=== PATIENT | female | born 1990 | race Caucasian/White ===

== ENCOUNTER 2020-06-15 15:26 | Outpatient (REF) | payer MEDICAID, SELFPAY | END 2020-06-15 15:27 | disposition home or self-care (01) | LOC: HO.HAP 15:26 | PROVIDERS: Visit Provider Pediatrics | DX: Z46.1 Encounter for fitting and adjustment of hearing aid (principal) | CPT/HCPCS: 92593; V5266 ==

== ENCOUNTER 2020-11-20 14:47 | Outpatient (REF) | payer MEDICAID, SELFPAY | END 2020-11-20 14:48 | disposition home or self-care (01) | LOC: HO.HAP 14:47 | PROVIDERS: Visit Provider Pediatrics | DX: Z46.1 Encounter for fitting and adjustment of hearing aid (principal) | CPT/HCPCS: V5266 ==

== ENCOUNTER 2021-03-16 16:52 | Outpatient (REF) | payer MEDICAID, SELFPAY | END 2021-03-16 16:53 | disposition home or self-care (01) | LOC: HO.HAP 16:52 | PROVIDERS: Visit Provider Pediatrics | DX: Z13.89 Encounter for screening for other disorder (principal) ==

== ENCOUNTER 2021-03-29 15:22 | Outpatient (REF) | payer MEDICAID, SELFPAY | END 2021-03-29 15:23 | disposition home or self-care (01) | LOC: HO.HAP 15:22 | PROVIDERS: Visit Provider Pediatrics | DX: Z13.89 Encounter for screening for other disorder (principal) ==

== ENCOUNTER 2021-05-01 12:14 | Outpatient (REF) | payer MEDICAID, SELFPAY | END 2021-05-01 12:15 | disposition home or self-care (01) | LOC: HO.HAP 12:14 | PROVIDERS: Visit Provider Pediatrics | DX: Z46.1 Encounter for fitting and adjustment of hearing aid (principal); H90.3 Sensorineural hearing loss, bilateral | CPT/HCPCS: V5266 ==

== ENCOUNTER 2021-11-12 14:35 | Outpatient (REF) | payer MEDICAID, SELFPAY | END 2021-11-12 14:36 | disposition home or self-care (01) | LOC: HO.HAP 14:35 | PROVIDERS: Visit Provider Pediatrics | DX: Z46.1 Encounter for fitting and adjustment of hearing aid (principal); H90.3 Sensorineural hearing loss, bilateral | CPT/HCPCS: V5266 ==

== ENCOUNTER 2022-02-14 14:26 | Outpatient (REF) | payer MEDICAID, SELFPAY | END 2022-02-14 14:27 | disposition home or self-care (01) | LOC: HO.HAP 14:26 | PROVIDERS: Visit Provider Pediatrics | DX: Z46.1 Encounter for fitting and adjustment of hearing aid (principal); H90.6 Mixed conductive and sensorineural hearing loss, bilateral | CPT/HCPCS: 92592 ==

== ENCOUNTER 2022-05-15 11:34 | Outpatient (REF) | payer MEDICAID, SELFPAY | END 2022-05-15 11:35 | disposition home or self-care (01) | LOC: HO.HAP 11:34 | PROVIDERS: Visit Provider Pediatrics | DX: Z46.1 Encounter for fitting and adjustment of hearing aid (principal); H90.6 Mixed conductive and sensorineural hearing loss, bilateral | CPT/HCPCS: V5266 ==

== ENCOUNTER 2022-10-11 12:11 | Outpatient (REF) | payer MEDICARE, MEDICAID, SELFPAY | END 2022-10-11 12:12 | disposition home or self-care (01) | LOC: HO.HAP 12:11 | PROVIDERS: Visit Provider Pediatrics | DX: Z46.1 Encounter for fitting and adjustment of hearing aid (principal); H90.6 Mixed conductive and sensorineural hearing loss, bilateral | CPT/HCPCS: V5266 ==

== ENCOUNTER 2023-03-20 09:52 | Outpatient (REF) | payer MEDICARE, MEDICAID, SELFPAY | END 2023-03-20 09:53 | disposition home or self-care (01) | LOC: HO.HAP 09:52 | PROVIDERS: Visit Provider Internal Medicine | DX: Z46.1 Encounter for fitting and adjustment of hearing aid (principal); H90.3 Sensorineural hearing loss, bilateral | CPT/HCPCS: V5266 ==

== ENCOUNTER 2023-04-24 10:26 | Outpatient (REF) | payer MEDICARE, MEDICAID, SELFPAY | END 2023-04-24 10:27 | disposition home or self-care (01) | LOC: HO.HAP 10:26 | PROVIDERS: Visit Provider Pediatrics | DX: Z46.1 Encounter for fitting and adjustment of hearing aid (principal); H90.3 Sensorineural hearing loss, bilateral | CPT/HCPCS: 92592 ==

== ENCOUNTER 2023-04-25 11:01 | Outpatient (REF) | payer MEDICARE, MEDICAID, SELFPAY | END 2023-04-25 11:02 | disposition home or self-care (01) | LOC: HO.HAP 11:01 | PROVIDERS: Visit Provider Internal Medicine | DX: Z46.1 Encounter for fitting and adjustment of hearing aid (principal); H90.6 Mixed conductive and sensorineural hearing loss, bilateral | CPT/HCPCS: 92592 ==

== ENCOUNTER 2023-08-11 10:55 | Outpatient (REF) | payer MEDICARE, MEDICAID, SELFPAY | END 2023-08-11 10:56 | disposition home or self-care (01) | LOC: HO.HAP 10:55 | PROVIDERS: Visit Provider Internal Medicine | DX: Z46.1 Encounter for fitting and adjustment of hearing aid (principal); H90.3 Sensorineural hearing loss, bilateral | CPT/HCPCS: V5266 ==

== ENCOUNTER 2023-08-26 10:29 | Outpatient (REF) | payer MEDICARE, MEDICAID, SELFPAY | END 2023-08-26 10:30 | disposition home or self-care (01) | LOC: HO.HAP 10:29 | PROVIDERS: Visit Provider Internal Medicine | DX: Z46.1 Encounter for fitting and adjustment of hearing aid (principal); H90.3 Sensorineural hearing loss, bilateral | CPT/HCPCS: 92592; 99499 ==

== ENCOUNTER 2023-08-27 10:34 | Outpatient (REF) | payer MEDICARE, MEDICAID, SELFPAY | END 2023-08-27 10:35 | disposition home or self-care (01) | LOC: HO.HAP 10:34 | PROVIDERS: Visit Provider Internal Medicine | DX: Z13.89 Encounter for screening for other disorder (principal) ==

== ENCOUNTER 2024-02-11 13:38 | Outpatient (REF) | payer MEDICARE, MEDICAID, SELFPAY | END 2024-02-11 13:39 | disposition home or self-care (01) | LOC: HO.HAP 13:38 | PROVIDERS: Visit Provider Pediatrics | DX: Z46.1 Encounter for fitting and adjustment of hearing aid (principal) | CPT/HCPCS: V5266 ==

== ENCOUNTER 2024-02-24 11:51 | Outpatient (REF) | payer MEDICARE, MEDICAID, SELFPAY ==
--- NOTE | 2024-02-24 15:04 | MHC.AU.HA3 ---
Hearing Instrument Follow-Up- Binaural Date of Visit: 02/24/24 Right Ear: Jesus Alberto, Model, Color, Serial Number: Rajat Prado-Mati WARE [id number] Booth Supervisor Repair Warranty: 06/21/2022 Booth Supervisor Loss and Damage Warranty: 06/21/2022 Battery Size: 312 Earmold/Dome/CShell/SlimTip:canal lock mold Dispensed By: [facility] Date of Fittin04/09/2019 Left Ear: Jesus Alberto, Model, Color, Serial Number: Rajat Nguyen0-[id number] [id number] Booth Supervisor Repair Warranty: 06/21/2022 Booth Supervisor Loss and Damage Warranty: 06/21/2022 Battery Size: 312 Earmold/Dome/CShell/SlimTip: canal lock mold Dispensed By: [facility] Date of Fittin04/09/2019 Follow-Up Summary: Right hearing aid and left ear mold dropped off. Tubing broken and out of ear mold. Cleaned both hearing aid and ear mold. Replaced tubing. Vacuumed microphones. Ran through dehumidifier. Listening check demonstrated hearing aid amplifying clearly. Did not reattach left mold to right hearing aid. Called and spoke to Amna. She reported she probably put the ear molds back on the wrong hearing aids after trying to clean the ear molds herself. She will switch them back at home. Recommendations: Hearing instrument follow-up or maintenance as needed. Please contact our clinic with any questions or concerns. Diagnosis Code(s): Primary Diagnosis: H90.3 Bilateral Sensorineural Hearing Loss Signature: Provider: Eriberto Smyth, [facility]
== END 2024-02-24 11:52 | disposition home or self-care (01) ==
LOC: HO.HAP 11:51
PROVIDERS: Visit Provider Pediatrics
DX: Z13.89 Encounter for screening for other disorder (principal)

== ENCOUNTER 2024-02-25 11:21 | Outpatient (REF) | payer MEDICARE, MEDICAID, SELFPAY | END 2024-02-25 11:22 | disposition home or self-care (01) | LOC: HO.HAP 11:21 | PROVIDERS: Visit Provider Pediatrics | DX: Z46.1 Encounter for fitting and adjustment of hearing aid (principal); H90.6 Mixed conductive and sensorineural hearing loss, bilateral | CPT/HCPCS: 92592; 99499 ==

== ENCOUNTER 2024-08-24 14:28 | Outpatient (REF) | payer MEDICARE, MEDICAID, SELFPAY ==
--- OUTSIDE RECORDS SUMMARY | 2024-08-24 14:31 | XMS_ITS | Continuity of Care Document ---
Author Organization [facility] Address [address] [place] [address]- Care Team Providers Care Hadoop Architect Name Role Phone Renetta Saeed DO Primary Care Physician [id number] Date[facility]/30/24 - 07/28/[address] [address] Attending Physician: Alyssa Dailey MD Admitting Physician: Alyssa Dailey MD Referring Physician: Renetta Saeed DO Encounter Type: Pre-OutPatient One Time Allergies, Adverse Reactions, Alerts No Known Allergies Immunizations Given and Recorded Vaccine Date Status Refusal Reason influenza virus vaccine, inactivated 1 09/17/22 Gi pierre influenza virus vaccine, inactivated 2 07/20/21 Gi pierre influenza virus vaccine, inactivated 3 09/24/19 Gi pierre influenza virus vaccine, inactivated 06/10/17 Give n influenza virus vaccine, inactivated 10/05/13 Give n influenza virus vaccine, inactivated 08/14/12 Give n influenza virus vaccine, inactivated 09/19/11 Give n influenza virus vaccine, inactivated 08/14/10 Give n influenza virus vaccine, inactivated 06/02/09 Give n influenza virus vaccine, inactivated 06/15/08 Give n influenza virus vaccine, inactivated 07/18/06 Give n [id number] bivalent booster vax 08/03/22 Recorded hepatitis B adult vaccine 05/09/22 Given SARS-CoV-2 (COVID-19) mRNA-1273 vaccine 07/19/21 R ecorded SARS-CoV-2 (COVID-19) mRNA-1273 vaccine 11/27/20 G iven SARS-CoV-2 (COVID-19) mRNA-1273 vaccine 10/30/20 G iven Influenza Virus Vaccine (oldterm) 07/15/20 Recorde d tetanus/diphtheria/pertussis, acel(Tdap) 4 02/02/13 Given tetanus/diphtheria/pertussis, acel(Tdap) 12/23/08 Given Meningococcal Polysaccharide Vaccine 12/23/07 Give n Meningococcal Conjugate Vaccine 12/23/07 Recorded tetanus-diphtheria toxoids (Td) 02/19/05 Given hepatitis B pediatric vaccine 07/07/02 Given hepatitis B pediatric vaccine 03/05/02 Given Poliovirus Vaccine, Inactivated 12/20/94 Given Poliovirus Vaccine, Inactivated 06/22/91 Given Poliovirus Vaccine, Inactivated 04/20/90 Given Poliovirus Vaccine, Inactivated 02/18/90 Given Measles/Mumps/Rubella Virus Vaccine 12/20/94 Given Measles/Mumps/Rubella Virus Vaccine 03/23/91 Given diphtheria/tetanus/pertussis, acel(DTaP) 12/20/94 Given diphtheria/tetanus/pertussis, acel(DTaP) 07/01/91 Given diphtheria/tetanus/pertussis, acel(DTaP) 06/09/90 Given diphtheria/tetanus/pertussis, acel(DTaP) 04/20/90 Given diphtheria/tetanus/pertussis, acel(DTaP) 02/18/90 Given Varicella Virus Vaccine 12/18/92 Given Haemophilus B conjugate (HbOC) vaccine 03/13/91 Gi pierre Haemophilus B conjugate (HbOC) vaccine 01/14/91 Gi pierre Haemophilus B conjugate (HbOC) vaccine 12/21/90 Gi pierre Haemophilus B conjugate (HbOC) vaccine 10/16/90 Gi pierre 1Result Comment: [facility]: [id number] 2Result Comment: [id number] 3Result Comment: 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 Constipation Confirmed Active Dyslipidemia Confirmed Active Leg edema Confirmed Active Gait disturbance- tight hamstrings, heel cords Confirmed Active History of spinal fusion Confirmed Active Hearing loss- mild low tone bilateral Confirmed Active Intellectual disability Confirmed Active Legal Guardian- Gonzalez Segovia, Mom Confirmed Active Microscopic hematuria Confirmed Active Microhematuria Confirmed Active Mixed sleep apnea Confirmed Active Obstructive sleep apnea Confirmed Active Onychomycosis Confirmed Active Urge incontinence Confirmed Active Vaginitis Confirmed Active 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 Social History Social History Type Response Smoking Status Never (less than 100 in lifetime) entered on: 11/25/18 Sex Sex Representation Female (finding) Patient Care team information Care Team Personnel Name: Renetta Saeed DO Position: [facility] Physician - Primary Care Member Role: PCP Address: [address] [place] [address] Adult & Pediatric Medicine [address] Telecom: Name: Katheryn Lovelace MD Position: Reference Physician Member Role: Lifetime Consulting Physician Address: [address] [place] [address] Telecom: Care Team Related Persons Name: RADHA VUONG Name: CHIOMA SEGOVIA Name: GONZALEZ SEGOVIA Insurance Providers Guarantor name: MARCIN JULIA Health Plan Information #: 1 Payer: MEDICARE PART B OUTPT Member Number: [id number] Policy Number: NA Group Number: NA Health Plan Information #: 2 [facility] Member Number: [id number] Policy Number: NA Group Number: NA
--- OUTSIDE RECORDS SUMMARY | 2024-08-24 14:31 | XMS_ITS | Continuity of Care Document ---
Author Organization [facility] Address [address] [place] [address]- Care Team Providers Care Paper Reclaiming Machine Operator Name Role Phone Luis AntonioRenetta lazo DO Primary Care Physician [place] [facility] Date(s): 07/21/24 - 08/20/24 [facility] [address] [place], [place] [address] Encounter Type: Triage Allergies, Adverse Reactions, Alerts No Known Allergies [...] influenza virus vaccine, inactivated 07/18/06 Give n [id number] bivalent booster vax 08/03/22 Recorded hepatitis B adult vaccine 05/09/22 Given SARS-CoV-2 (COVID-19) mRNA-1273 vaccine 07/19/21 R ecorded SARS-CoV-2 (COVID-19) mRNA-1273 vaccine 11/27/20 G iven SARS-CoV-2 (COVID-19) mRNA-1273 vaccine 2/22/21 G iven Influenza Virus Vaccine (oldterm) 07/15/20 [...] (HbOC) vaccine 10/16/90 Gi pierre 1Result Comment: [facility]: [id number] 2Result Comment: [id number] 3Result Comment: [facility] [phone] Pt tolerated vaccine without incident...NH 4Admin Note: [...] Team Personnel Name: Renetta Saeed DO Position: [facility] Physician - Primary Care Member Role: PCP Address: [address] [place] [address] Adult [place] [address] [place] Telecom: Name: Katheryn Lovelace MD Position: Reference Physician Member Role: Lifetime Consulting Physician Address: [address] [place] [address] Telecom: Care Team Related Persons Name: RADHA VUONG Name: CHIOMA SEGOVIA Name: GONZALEZ SEGOVIA Insurance Providers Guarantor name: MARCIN JULIA Quizens Plan Information #: 1 Payer: MEDICARE PART B OUTPT Member Number: NA Policy Number: NA Group Number: NA Health Plan Information #: 2 Payer: [place] Member Number: NA Policy Number: NA Group Number: NA
== END 2024-08-24 14:29 | disposition home or self-care (01) ==
LOC: HO.HAP 14:28
PROVIDERS: Visit Provider Pediatrics
DX: Z46.1 Encounter for fitting and adjustment of hearing aid (principal); H90.3 Sensorineural hearing loss, bilateral
CPT/HCPCS: V5266

== ENCOUNTER 2025-02-08 15:24 | Outpatient (REF) | payer MEDICARE, MEDICAID, SELFPAY ==
--- OUTSIDE RECORDS SUMMARY | 2025-02-08 16:51 | XMS_ITS | Clinical Summary ---
Author Organization [facility] Address [address] [facility] [address] [place] [address] Phone Care Team Providers Care Salesperson Floor Coverings Name Role Phone Luis AntoniozelalemsantyeranRenetta Primary Care Provider [phone] Allergies No known active allergies Medications betamethasone dipropionate 0.05 % lotion Apply topically 2 (two) times a day Active FLUoxetine (PROzac) 20 MG capsule Take 20 mg by mouth 1 (one) time each day Active selenium sulfide (SELSUN) 2.5 % shampoo Apply topically 1 (one) time each day if needed for dandruff Leave on scalp 2-3 minutes, rinse thoroughly Active GaviLAX 17 GM/SCOOP powder USE 17 GRAMS DAILY NEEDED FOR CONSTIPATION 2 Active Iron Supplement 220 (44 Fe) MG/5ML solution Take 6.8 mL by mouth every other day 4 Active Active Problems Problem Noted Date Diagnosed Date Microalbuminuria 09/19/2021 Edema 09/19/2021 Edema of lower extremity 09/19/2021 Urge incontinence of urine 09/19/2021 Iron deficiency anemia 12/30/2008 Overview (09/19/2021): At PE 12/15 - placed on iron Hematuria 10/22/2006 Overview (09/19/2021): workup neg, including ultrasound IMO update Resolved Problems Problem Noted Date Diagnosed Date Resolved Date Acute sinusitis 09/19/2021 09/19/2021 Overview (09/19/2021): , , 10/15, 01/15 Abnormal gait 09/19/2021 09/19/2021 Anxiety 09/19/2021 09/19/2021 Constipation 09/19/2021 09/19/2021 Dyslipidemia 09/19/2021 09/19/2021 H/O: arthrodesis 09/19/2021 09/19/2021 Hearing loss 09/19/2021 09/19/2021 Impacted cerumen 09/19/2021 09/19/2021 Legal affairs and legal constraints - finding 09/19/19 22 09/19/2021 Central sleep apnea syndrome 09/02/2017 09/19/2021 Shoulder pain 01/16/2010 09/19/2021 Overview (09/19/2021): Xray abnormal, Dr Ortiz 01/15 , shoulder injected with Kenalog Ref to PT at [facility] 08/17 Apnea 12/27/2008 09/19/2021 Overview (09/19/2021): On sleep study, persistent after T&A for SHANDRA 12/11, refused CPAP Seen by Dr Izaguirre 04/18 for re-evaluation - trial of weight loss, consider repeat sleep study Menorrhagia 05/05/2008 09/19/2021 Overview (09/19/2021): Menarche 07/15, Orthoevra patch 04/15 (pedi endo) - ?08/15 Depo 04/17 Last Assessment & Plan: Reviewed other options including Mirena IUD and norethindrone acetate 5 mg daily, they rpefer to stay on the Depo at this point. Problem behavior 11/20/2006 09/19/2021 Overview (09/19/2021): on risperdal 0.5 mg bid 2006 - dr lópez at [facility] in [place] previously on prozac, buspar, clonidine patch, po valium Mom stopped all meds 08/14 IMO update Urinary incontinence of non-organic origin 11/20/2006 09/19/2021 Overview (09/19/2021): hypertonic bladder, ditropan since 2000 prn Acute suppurative otitis med ia without spontaneous rupture of ear drum 10/22/2006 09/19/19 22 Overview (09/19/2021): 07/09, 1991x2, , , 1995x2, 10/12, 12/10, 06/13, 01/13, 04/17 PE tubes IMO update Benign neoplasm of skin of t runk, except scrotum 10/22/2006 09/19/2021 Overview (09/19/2021): L ant chest, excised in bench tool maker, skin exam annually Congenital anomalies of lens shape 10/22/2006 09/19/2021 Overview (09/19/2021): followed by dr ribeiro retinal involvement 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 spinal fusion T2 to L3 at [facility], dr dotson, 01/05/07 Dismissed from [facility] 08/17 Intellectual disability 10/22/200609/08 Overview (09/19/2021): Testing 2006: FS IQ 40 Other specified nonteratogenic anomalies 10/22/2006 09/19/2021 Overview (09/19/2021): followed at [facility] Sensory hearing loss, bilateral 10/22/2006 09/19/2021 Overview (09/19/2021): bilateral, mild, checked at [place] once a year Slipped upper femoral epiphysis 10/22/2006 09/19/2021 Overview (09/19/2021): surgery 03/11 Immunizations Immunization Administration Dates Next Due DT 12/20/1994, 1,06/09/1990,04/20/1990 ,02/18/1990 DTaP 12/20/1994, 1,06/09/1990,04/20/1990 ,02/18/1990 DTaP / HiB / IPV 03/13/1991,01/14/1991, 1,10/16/1990 Hep B, Adolescent or Pediatric 07/07/2002,2001 Hepatitis B 07/07/2002,03/05/2002 IPV 12/20/1994,06/22/1991,04/20/1990 ,02/18/1990 Influenza (IM) Preservative Free 08/14/2012,07/09 Influenza Whole 07/15/2020 Influenza, Unspecified 07/20/2021,2019,06/10/2017,10/05/2013 ,08/14/2012,09/19/2011,09/19/2011, 0,08/14/2010,06/02/2009,06/02/2009,06/15/20 08,06/15/2008,07/18/2006 MMR 12/20/1994,12/20/1994,03/23/1991 ,03/23/1991 Meningococcal MCV4P 12/23/2007 Meningococcal Polysaccharide 12/23/2007 Meningococcal, Unspecified 12/23/2007 Moderna SARS-COV-2 11/27/2020,10/30/2020 PPD Test 12/20/1994 Pfizer SARS-COV-2 10/30/2020 Polio, Unspecified 12/20/1994,06/22/1991, 990,02/18/1990 Td 02/19/2005 Td, Unspecified 02/19/2005 Tdap 02/02/2013,12/23/2008,12/23/2008 Varicella 1992 Family History Medical History Relation Comments Diabetes Maternal Grandmother Hypertension Maternal Grandmother Hypertension Mother's Sister Relation Status Comments Father Alive Maternal Grandmother Mother Alive Mother's Sister Social History Tobacco Use Types Packs/Day Years Used Date Smoking Tobacco: Never Smokeless Tobacco: Never Tobacco Cessation:Counseling Given: Not Answered Alcohol Use Standard Drinks/Week Comments Never 0 (1 standard drink = 0.6 oz pur e alcohol) Comments Unknown Sex and Gender Information Value Date Recorded Sex Assigned at Not on file Legal Sex Female 10:52 AM EST Gender Identity Not on file Sexual Orientation Not on file Last Filed Vital Signs Vital Sign Reading Time Taken Comments Blood Pressure 100/60 06/09/2024 3:23 PM EDT Pulse 93 06/09/2024 3:23 PM EDT Temperature - - Respiratory Rate - - Oxygen Saturation 99% 06/09/2024 3:23 PM EDT Inhaled Oxygen Concentration - - Weight 82.6 kg (182 lb) 06/09/2024 3:23 PM EDT Height - - Body Mass Index - - Plan of Treatment Upcoming Encounters Date Type Department Care Team (Late st Contact Info) Description 06/09/2025 3:45 PM EDT Office Visit [facility] [address] [phone] Chanda Bar ARNP [address] [phone] Health Maintenance Due Date Last Done Comments Pneumococcal Vaccine: Peds ( 0 to 5 Years) and At-Risk Patients (6 to 49 Years) (1 of 2 - PCV) 2008 Influenza Vaccine (Season Ended) 2025 07/20/2021, 07/15/2020, 09/24/2019, Additional history exists Hepatitis B Vaccine Completed 05/09/2022, 07/07/2002, 07/07/2002, Additional history exists Insurance Medicaid [place] Medicare Medicare Medicaid [place] Care Teams Salesperson Floor Coverings Relationship Specialty Start Date End Date Renetta Saeed DO [address] [place] [phone] PCP - General Pediatrics 07/27/21
--- NOTE | 2025-02-08 17:06 | MHC.AU.MED ---
Medical Clearance for Hearing Instrumentation Date: 02/08/25 Patient Name: Myriam Jones Date of : 1990 Primary Care Provider: Renetta Saeed, DO We have seen your patient on 02/08/25 and have determined that they are a candidate for amplification (See accompanying report). Specifically, they would benefit from: Hearing aid use in both ears There is a statute that addresses Medical Evaluation Requirements prior to fitting a patient with a hearing aid. According to [place] statute 265 CMR:6.03(1), (a) General. Except as provided in 265 CMR 6.03(1)(b), a work order sorting clerk shall not sell a hearing aid unless the prospective user has presented to the work order sorting clerk a written statement signed by a licensed physician that states that the patient's hearing loss has been medically evaluated and the patient may be considered a candidate for a hearing aid. The medical evaluation must have taken place within the preceding six months. Please note: Due to the [place] Statute referenced above, we cannot accept a signature other than that of a licensed physician. CYTOMETRY TECHNOLOGIST and PA signatures cannot be accepted. I am in agreement with the above recommendation. There is no medical contraindication for hearing instrumentation. Physician Signature Date Physician Name (Printed)
--- NOTE | 2025-02-09 07:24 | MHC.AU.HA3 ---
Hearing Instrument Follow-Up- Binaural Date of Visit: 02/08/25 Right Ear: Jesus Alberto, Model, Color, Serial Number: Rajat [id number] SN: [id number] Color: [place] Chart Changer Repair Warranty: 06/21/2022 Chart Changer Loss and Damage Warranty: 06/21/2022 Battery Size: 312 Earmold/Dome/CShell/SlimTip: Microsonic [id number] canal lock Dispensed By: [facility] Date of Fittin04/09/2019 Left Ear: Model Jesus Alberto, Color, Serial Number: Rajat [id number] SN: [id number] Color: [place] Chart Changer Repair Warranty: 06/21/2022 Chart Changer Loss and Damage Warranty: 06/21/2022 Battery Size: 312 Earmold/Dome/CShell/SlimTip: Microsonic [id number] canal lock Dispensed By: [facility] Date of Fittin04/09/2019 Follow-Up Summary: Accompanied by mother, Amna. Updated hearing test (see audio). Lost left BECKER. Ready to pursue new HAs due to age of current devices - see Hearing Aid Evaluation note. Right EM/tubing hard, full of wax/moisture. Cleaned BECKER (1). Cleaned EM (1). Replaced tubing (1). [id number] x3. Listening check demonstrated BECKER amplifying clearly. Recommendations: Hearing instrument follow-up or maintenance as needed. Please contact our clinic with any questions or concerns. Diagnosis Code(s): Primary Diagnosis: H90.6 Mixed Hearing Loss, Bilateral Signature: Provider: Eriberto Smyth, [facility]
--- NOTE | 2025-02-09 11:21 | MHC.AU.HA1 ---
Hearing Aid Evaluation Date of Visit: 02/08/25 Historical Information: Description of Hearing: Right Ear: Mild dropping to moderately-severe rising to mild mixed hearing loss; Left Ear: Moderate dropping to moderately-severe rising to moderate sloping to moderately-severe mixed hearing loss Current personal amplification information: Phonak Perlita B50-M BTEs fit in April 2019 Summary: Accompanied by momAmna. Lost left BECKER. Ready to pursue new HAs due to age of current pair. Discussed options including styles, manufacturers, rechargeability. Mom opted to stay with same BTE style for durability, wants rechargeable. Agreeable to larger BTE portion of rechargeable devices. Impressions taken, bilaterally, without incident - in hold drawer pending medical clearance. Will use just right BECKER in meantime. Hearing Aid Prescription: Based on the individual?s shared listening needs, communication environments, dexterity, desire for connectivity, and personal preferences, the following prescription for amplification has been made: Right ear: Make, Model, Color: Phonak Gisel L70-SC Color: Mena Battery Size: Rechargeable Type of Earmold/Dome/CShell/SlimTip: Jeffrey 60 [place] canal lock Left ear: Left ear prescription to be same as Right Hearing Aid above: Make, Model, Color: Phonak Gisel L70-SC Color: Mena Battery Size: Rechargeable Type of Earmold/Dome/CShell/SlimTip: Jeffrey 60 [place] canal lock Accessories/Assistive Technology: Pilot Steam Yacht Plan of Care: Patient wishes to purchase hearing aids as prescribed Action Taken/Action Needed: Medical Clearance to be requested from PCP/ENT. Hearing Instrument Fitting to be scheduled when materials arrive Comments: Recommend cerumen removal by PCP prior to HAF Primary Diagnosis: H90.6 Mixed Hearing Loss, Bilateral Signature: Provider: Eriberto Smyth, [facility]
== END 2025-02-08 15:25 | disposition home or self-care (01) ==
LOC: HO.SH 15:24
PROVIDERS: Visit Provider Pediatrics
DX: Z01.118 Encounter for examination of ears and hearing with other abnormal findings (principal); Z46.1 Encounter for fitting and adjustment of hearing aid; H90.6 Mixed conductive and sensorineural hearing loss, bilateral
CPT/HCPCS: 92557; 92567; 92591; 92592; 99499; V5266; V5275

== ENCOUNTER 2025-04-19 12:52 | Outpatient (REF) | payer MEDICARE, MEDICAID, SELFPAY ==
--- OUTSIDE RECORDS SUMMARY | 2025-04-19 13:31 | XMS_ITS | Clinical Summary ---
Author Organization [facility] Address [address] [facility] [address] [place] [address] Phone Care Team Providers Care Security Associate Name Role Phone Luis AntoniozelalemsantyeranRenetta Primary Care Provider [phone] Allergies No known active allergies Medications betamethasone [...] injected with Kenalog Ref to PT at [facility] 08/17 Apnea 12/27/2008 09/19/2021 Overview (09/19/2021): On [...] mg bid 2006 - dr lópez at [facility] in [place] previously on prozac, buspar, clonidine patch, po [...] Overview (09/19/2021): L ant chest, excised in whale trainer, skin exam annually Congenital anomalies of lens shape 10/22/2006 09/19/2021 Overview (09/19/2021): followed by dr ribeiro retinal involvement 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 dotson, 01/05/07 Dismissed from [facility] 08/17 Intellectual disability 10/22/200609/08 Overview (09/19/2021): Testing 2006: FS IQ 40 Other specified nonteratogenic anomalies 10/22/2006 09/19/2021 Overview (09/19/2021): followed at [facility] Sensory hearing loss, bilateral 10/22/2006 09/19/2021 Overview (09/19/2021): bilateral, mild, checked at [place] once a year Slipped upper femoral epiphysis [...] Care Team (Late st Contact Info) Description 05/09/2025 Orders Only [facility] [address] [phone] Chanda Bar ARNP [address] [phone] Other microscopic hematuria 06/09/2025 3:45 PM EDT Office Visit [facility] [address] [phone] Chanda Bar ARNP [address] [phone] Health Maintenance Due Date Last Done Comments Pneumococcal Vaccine: Peds ( 0 to 5 Years) and At-Risk Patients (6 to 49 Years) (1 of 2 - PCV) 2008 Influenza Vaccine (#1) 2025 5, 09/17/2022, 07/20/2021, Additional history exists Hepatitis B Vaccine Completed 05/09/2022, 07/07/2002, 07/07/2002, Additional history exists Insurance Medicaid [place] Medicare Medicare Medicaid [place] Care Teams Security Associate Relationship Specialty Start Date End Date Renetta Saeed DO [address] [place] [address] PCP - General Pediatrics 07/27/21
--- OUTSIDE RECORDS SUMMARY | 2025-04-19 13:32 | XMS_ITS | Encounter Summary ---
Author Organization [facility] Address [address] [place] [address] Care Team Providers Care Real Time Trader Name Role Phone Katheryn Lovelace Primary Care Provider Lyla Pretty, Pcp Primary Care Provider Renetta Sr DO Primary Care Provider Un available Reason for Visit * Reason Comments E-prescribe Rx Request Encounter Details Date Type Department Care Team Description 02/27/2017 Refill OBGYN - [place] [address] [place] [address] Светлана García MD E-prescribe Rx Request Social History Tobacco Use Types Packs/Day Years Used Date Smoking Tobacco: Never Smokeless Tobacco: Never Alcohol Use Standard Drinks/Week Comments No 0 (1 standard drink = 0.6 oz pur e alcohol) Sex Assigned at Date Recorded Not on file Job Start Date Occupation Industry Not on file Not on file Not on file documented as of this encounter Miscellaneous Notes * Telephone Encounter - Denia Feliciano M.A. - 02/27/2017 2:40 PM EDT Please review in provider absence. CMB * Telephone Encounter - Jabier Hickey - 02/27/2017 2:35 PM EDT WHEN WAS THE PATIENTS LAST ANNUAL HAT TRIMMER EXAM? 01/31/16 Does patient have an upcoming appointment? Yes 02/28/17 (THE MEDICATION REQUESTED IS ON THE MED LIST ABOVE) Did you check the Pharmacy information above?: YES Indicate how soon the patient needs the script: BY THE END OF THE DAY Patient would like script to be: E-PRESCRIBED/FAXED TO PHARMACY Is the doctor here today?: YES Can the message wait until the doctor returns?: NO Has the patient been told that the prescription will not be filled until the end of the day? NO Payor: [place] [employer] / Plan: [place] HMO $0 [place] / Product Type: HMO [id number] documented in this encounter Plan of Treatment Not on file documented as of this encounter Visit Diagnoses Not on filedocumented in this encounter Care Teams Real Time Trader Relationship Specialty Start Date End Date Katheryn Lovelace PCP - General Internal Medicine 04/29/12 10/13/18 [facility] [place], Pcp PCP - General Internal Medicine 10/14/18 11/29/18 Renetta Saeed DO PCP - General Pediatrics 11/30/18 documented as of this encounter
--- NOTE | 2025-04-19 13:53 | MHC.AU.HA2 ---
Hearing Instrument Fitting- Adult- Binaural Date of Visit: 04/19/25 Hearing Instruments Dispensed: Right Ear: Make, Model, Color, Serial Number: Rajat Batres [id number] SN: [id number] Color: [place] Hooking Machine Operator Repair Warranty: 04/08/2028 Hooking Machine Operator Loss and Damage Warranty: 04/08/2028 [facility] Service Plan: 04/19/2026 Battery Size: Rechargeable [place]/Dome/CShell/SlimTip: [place] [address] canal lock SN: [id number] Warranty 06/14/2025 Left Ear: Make, Model, Color, Serial Number: Rajat Batres [id number] SN: [id number] Color: [place] Hooking Machine Operator Repair Warranty: 04/08/2028 Hooking Machine Operator Loss and Damage Warranty: 04/08/2028 [facility] Service Plan: 04/19/2026 Battery Size: Rechargeable [place]/Dome/CShell/SlimTip: [place] [address] canal lock SN: [id number] Warranty 06/14/2025 Accessories/Assistive Technology: Phonak Contact And Service Clerks Supervisor Combi SN: [id number] Summary of Fitting: Accompanied by mother, Amna. Performed feedback analyzer and real ear measures. Comfortable at real ear settings. VC enabled per mom's request and instructed on use. Reviewed care and use, primarily rechargeability and manually turning on/off, as that is biggest difference between old and new HAs. Otherwise familiar with general maintenance as long-time BECKER user. Did not discuss bluetooth. Has old right BECKER to keep as back up. Mom did not feel a follow up was necessary at this time. Advised of trial period and warranty on EMs. She will call if issues arise. Recommendations: Hearing Instrument maintenance in 6 months, or sooner if needed. Please call our clinic with any questions or concerns. Diagnosis Code(s): Primary Diagnosis: H90.3 Bilateral Sensorineural Hearing Loss Signature: Provider: Eriberto Smyth, [facility]
== END 2025-04-19 12:53 | disposition home or self-care (01) ==
LOC: HO.HAP 12:52
PROVIDERS: Visit Provider Pediatrics
DX: Z46.1 Encounter for fitting and adjustment of hearing aid (principal); H90.3 Sensorineural hearing loss, bilateral
CPT/HCPCS: V5011; V5020; V5160; V5261; V5264